=== PATIENT | female | born 1965 | race Caucasian/White ===

== ENCOUNTER 2025-09-08 06:20 | Day surgery (SDC) | payer BC, SELFPAY ==
[2025-09-08] VITALS (9 sets, daily range): BP systolic 102–117; BP diastolic 48–70; BMI 21.2
[2025-09-08] MEDS: TYLENOL 1000 MG PO (14:45)
[2025-09-08] MEDS: NORMOSOL-R/PLASMALYTE-A 1000 IV (14:50)
--- NOTE | 2025-09-08 17:59 | W.IMMPOSTOP ---
Surgical Immed Post Op Note
-
Primary Surgeon: Brian Thompson MD
Assisting Surgeon:
Pre-op Diagnosis: right distal radius fracture
Post-op Diagnosis: right distal radius fracture
Procedure Performed: open reduction internal fixation right distal radius
Anesthesia Type: general with regional block
Specimen / Cultures: none
Estimated Blood Loss: 5mL
Complications: none apparent
Operative Findings: extra-articular right distal radius fracture
Tourniquet Time: 88 minutes @ 250 mmHg
Implants: Mobile Variax2 3-hole right volar distal radius plate
Operative dictation #: [id number]
== END 2025-09-08 19:14 | disposition home or self-care (01) ==
LOC: SDS 06:20
PROVIDERS: ATTENDING PHYSICIAN Student in an Organized Health Care Education/Training Program
DX: S52.591A Other fractures of lower end of right radius, initial encounter for closed fracture (principal); W00.0XXA Fall on same level due to ice and snow, initial encounter
CPT/HCPCS: 25607; C1713; 73110